=== PATIENT | female | born 1935 | race Caucasian/White ===

== ENCOUNTER → 2017-04-25 | Outpatient (CLI) | payer MEDICARE, BC | LOC: KOH-I 10:23 | DX: M16.12 Unilateral primary osteoarthritis, left hip (principal) | CPT/HCPCS: 73502 ==

== ENCOUNTER → 2021-02-14 | Outpatient (CLI) | payer MEDICARE, BC ==
[~2021-02-14] MED LIST: ALDACTONE50 MG PO; CALCIUM500 MG PO; CARDIZEM CD180 MG PO; CELEBREX 100MG100 MG PO; CYCLOBENZAPRINE5 MG PO; FLEXERIL 10 MG10 MG PO; IPRAT-ALBUT 0.5-3 ML NEB; JANTOVEN6 MG PO; K-DUR TAB 20 M20 MEQ PO; LANOXIN TAB0.125 MG PO; LASIX40 MG PO; MACROBID 100 M100 MG PO; MAGOX 400400 MG PO; MEGACE TAB 20 M20 MG PO; MIRALAX17 GM PO; NEURONTIN 100100 MG PO; NORCO 5-325 TA1 EACH PO; OS-CAL 500+D31 EACH PO; PROLOPRIM 100100 MG PO; REQUIP0.5 MG PO; SENNA-S TABLET1 EACH PO; SINGULAIR10 MG PO; SYMBICORT 16010.2 GM INH; TAMIFLU6 MG/1 ML PO; THERAGRAN M TAB1 EA PO; VENTOLIN HFA 66.7 GM INH; VITAMIN D PO; VITAMIN D31000 UNI1 PO; WARFARIN SODIUM4 MG PO; ZOFRAN4 MG PO
== END ==
LOC: KOH-I 11:42
DX: M47.892 Other spondylosis, cervical region (principal); M50.323 Other cervical disc degeneration at C6-C7 level
CPT/HCPCS: 72040; 93306

== ENCOUNTER 2022-02-03 04:24 | Emergency (ER) | payer MEDICARE, BC ==
[2022-02-03 05:14] LABS: HEMOGLOBIN 10.9 gm/dl (12.3-15.3); RED BLOOD COUNT 3.26 M/UL (4.00-5.10); WHITE BLOOD COUNT 2.9 K/UL (4.5-11.0)
[2022-02-03 05:36] LABS: BUN/CREATININE RATIO 17 (0-10)
== END 2022-02-03 10:45 | disposition other institution (70) ==
LOC: ER1 04:24
PROVIDERS: Emergency Medicine
DX: K62.5 Hemorrhage of anus and rectum (principal); R91.8 Other nonspecific abnormal finding of lung field; Z87.19 Personal history of other diseases of the digestive system; I48.91 Unspecified atrial fibrillation; Z79.01 Long term (current) use of anticoagulants; Z88.0 Allergy status to penicillin; Z51.81 Encounter for therapeutic drug level monitoring
CPT/HCPCS: 80053; 83605; 83690; 85025; 85610; 86850; 86900; 86901; 93005; 99285

== ENCOUNTER 2022-03-02 03:52 | Inpatient (IN) | payer MEDICARE, BC ==
[~2022-03-02] VITALS: Ht 160 cm; Wt 67.3 kg
[~2022-03-02 03:52] MED LIST changes: -CARDIZEM CD180 MG PO; +CARDIZEM CD240 MG PO; -REQUIP0.5 MG PO; +ROPINIROLE HCL1 MG PO; -VITAMIN D PO; +VITAMIN D325 MC6 PO
[2022-03-02 06:51] LABS: HEMOGLOBIN 8.3 gm/dl (12.3-15.3); RED BLOOD COUNT 2.68 M/UL (4.00-5.10); WHITE BLOOD COUNT 3.6 K/UL (4.5-11.0)
[2022-03-02 07:17] LABS: BUN/CREATININE RATIO 14 (0-10)
[2022-03-02] MEDS ORDERED: PROTONIX 40 MG40 M1 PO (10:38)
[2022-03-02] MEDS ORDERED: ELIQUIS2.5 MG PO (10:38)
[2022-03-03 03:44] LABS: BUN/CREATININE RATIO 21 (0-10)
[2022-03-03 04:52] LABS: RED BLOOD COUNT 1.86 M/UL (4.00-5.10); WHITE BLOOD COUNT 5.7 K/UL (4.5-11.0)
[2022-03-03 04:54] LABS: HEMOGLOBIN 5.7 gm/dl (12.3-15.3)
[2022-03-03 17:29] LABS: HEMOGLOBIN 7.7 gm/dl (12.3-15.3)
[2022-03-04 05:29] LABS: RED BLOOD COUNT 2.64 M/UL (4.00-5.10); WHITE BLOOD COUNT 10.6 K/UL (4.5-11.0)
[2022-03-05 06:45] LABS: RED BLOOD COUNT 2.03 M/UL (4.00-5.10); WHITE BLOOD COUNT 13.9 K/UL (4.5-11.0)
[2022-03-05 06:46] LABS: HEMOGLOBIN 6.3 gm/dl (12.3-15.3)
--- NOTE | 2022-03-05 07:01 | NUR ---
reported to dr. velasquez of patient hgb/hct abnormal values- acknowledged and he will discussed with dr. camp of plan what plan to do.
--- NOTE | 2022-03-05 13:49 | NUR ---
dr. brock in the room at this time for central line placement
--- NOTE | 2022-03-05 14:21 | NUR ---
CHEST SENIOR SOFTWARE TESTER WITH DR. RIOJAS IN THE ROOM
--- NOTE | 2022-03-05 14:55 | NUR ---
DR DONG IN PATIENT ROOM NOW
--- NOTE | 2022-03-05 15:15 | NUR ---
AFTER TALKING TO FAMILY DR. DONG ORDERED PATIENT TRANSFER TO ICU
--- NOTE | 2022-03-05 15:25 | NUR ---
Informed dr. dela cruz of [facility] transfer to ICU
[2022-03-06 05:26] LABS: RED BLOOD COUNT 2.73 M/UL (4.00-5.10); WHITE BLOOD COUNT 8.4 K/UL (4.5-11.0)
[2022-03-06 05:27] LABS: HEMOGLOBIN 8.2 gm/dl (12.3-15.3)
[2022-03-06 11:28] LABS: BUN/CREATININE RATIO 33 (0-10)
[2022-03-06 16:47] LABS: HEMOGLOBIN 8.5 gm/dl (12.3-15.3); RED BLOOD COUNT 2.8 M/UL (4.00-5.10); WHITE BLOOD COUNT 8.3 K/UL (4.5-11.0)
[2022-03-06 17:13] LABS: BUN/CREATININE RATIO 34 (0-10)
[2022-03-06 19:42] LABS: BUN/CREATININE RATIO 34 (0-10)
[2022-03-07 04:54] LABS: HEMOGLOBIN 7.5 gm/dl (12.3-15.3); WHITE BLOOD COUNT 7.2 K/UL (4.5-11.0)
[2022-03-07 05:15] LABS: RED BLOOD COUNT 2.48 M/UL (4.00-5.10)
[2022-03-07 05:19] LABS: BUN/CREATININE RATIO 43 (0-10)
[2022-03-07 12:54] LABS: HEMOGLOBIN 7.6 gm/dl (12.3-15.3)
[2022-03-07 13:22] LABS: BUN/CREATININE RATIO 40 (0-10)
[2022-03-07 19:47] LABS: BUN/CREATININE RATIO 46 (0-10)
[2022-03-08 04:16] LABS: RED BLOOD COUNT 2.36 M/UL (4.00-5.10); WHITE BLOOD COUNT 6.2 K/UL (4.5-11.0)
[2022-03-08 04:45] LABS: HEMOGLOBIN 6.7 gm/dl (12.3-15.3)
[2022-03-08 05:30] LABS: BUN/CREATININE RATIO 46 (0-10)
[2022-03-08 16:49] LABS: HEMOGLOBIN 9.2 gm/dl (12.3-15.3)
[2022-03-09 05:38] LABS: HEMOGLOBIN 9.2 gm/dl (12.3-15.3); RED BLOOD COUNT 2.99 M/UL (4.00-5.10); WHITE BLOOD COUNT 8.5 K/UL (4.5-11.0)
[2022-03-09 05:56] LABS: BUN/CREATININE RATIO 45 (0-10)
--- NOTE | 2022-03-09 07:48 | NUR ---
DR. ANNA NOTIFIED OF DISTENDED ABDOMEN, T[place], SHORTNESS OF AIR AND CRACKLES IN THE RIGHT LUNG THAT WAS IDENTIFIED ON MY MORNING ASSESSMENT. STAT CHEST X-RAY AND KUB ORDERED PER DR. ANNA. THE PATIENTS MOST RECENT BOWEL MOVEMENT WAS 03/08/22 ON THE LEATHER TANNER. SHE IS NOT COMPLAINING OF ANY PAIN IN THE ABDOMEN OR NAUSEA/VOMITING.
--- NOTE | 2022-03-09 17:34 | NUR ---
PATIENT HAS REFUSED TURNS THE ENTIRE SHIFT. THE PATIENT HAS BEEN EDUCATED ON HER INCREASED RISK FOR PRESSURE ULCERS AND PNEUMONIA AND THE PATIENT DOES NOT WANT TO TURN.
[2022-03-10 04:18] LABS: HEMOGLOBIN 8.7 gm/dl (12.3-15.3); RED BLOOD COUNT 2.81 M/UL (4.00-5.10); WHITE BLOOD COUNT 5.2 K/UL (4.5-11.0)
[2022-03-10 04:41] LABS: BUN/CREATININE RATIO 46 (0-10)
[2022-03-11 06:09] LABS: HEMOGLOBIN 8.9 gm/dl (12.3-15.3); RED BLOOD COUNT 2.77 M/UL (4.00-5.10); WHITE BLOOD COUNT 4.8 K/UL (4.5-11.0)
[2022-03-11 06:41] LABS: BUN/CREATININE RATIO 37 (0-10)
[2022-03-12 02:05] LABS: HEMOGLOBIN 9.2 gm/dl (12.3-15.3); RED BLOOD COUNT 2.98 M/UL (4.00-5.10)
[2022-03-12 02:26] LABS: BUN/CREATININE RATIO 27 (0-10)
[2022-03-13 01:55] LABS: HEMOGLOBIN 9.7 gm/dl (12.3-15.3); RED BLOOD COUNT 3.14 M/UL (4.00-5.10); WHITE BLOOD COUNT 4.4 K/UL (4.5-11.0)
[2022-03-13 02:14] LABS: BUN/CREATININE RATIO 28 (0-10)
[2022-03-14 02:18] LABS: HEMOGLOBIN 9.4 gm/dl (12.3-15.3); RED BLOOD COUNT 2.93 M/UL (4.00-5.10); WHITE BLOOD COUNT 5.1 K/UL (4.5-11.0)
[2022-03-14 07:51] LABS: BUN/CREATININE RATIO 29 (0-10)
[2022-03-15] MEDS ORDERED: NEURONTIN 100100 MG PO (09:09)
[2022-03-15] MEDS ORDERED: FERROUS SULFAT325 M2 PO (09:09)
[2022-03-15] MEDS ORDERED: PYRIDIUM PO (09:09)
[2022-03-15] MEDS ORDERED: HYDROCODON-ACE1 EAC2 PO (09:09)
[2022-03-15] MEDS ORDERED: MUCOMYST 20% 4 M4 ML NEB (09:09)
[2022-03-15] MEDS ORDERED: DILTIAZEM 24HR180 M1 PO (09:09)
[2022-03-15] MEDS ORDERED: ACETAMINOPHEN325 MG PO (09:09)
[2022-03-15] MEDS ORDERED: IPRAT-ALBUT 0.5-3 ML NEB (09:09)
[2022-03-15] MEDS ORDERED: BISACODYL10 MG PR (09:09)
[2022-03-15] MEDS ORDERED: BUDESONIDE0.5 MG/2 M NEB (09:09)
[2022-03-15] MEDS ORDERED: SENNA-S TABLET1 EACH PO (09:09)
[2022-03-15] MEDS ORDERED: DIFLUCAN100 MG PO (09:17)
[2022-03-15] MEDS ORDERED: LOTRISONE CREAM15 GM TP (09:17)
== END 2022-03-15 16:20 | DRG 474 ==
LOC: ER1 03:52 → PROG CARE 08:50 → M/S 08:50 → CCU 08:50 → CDU 08:50 → M/S 10:23 → CCU 03-05 19:00 → PROG CARE 03-10 13:49
PROVIDERS: Internal Medicine; Internal Medicine Critical Care Medicine; Internal Medicine Infectious Disease; Internal Medicine Nephrology; Internal Medicine Pulmonary Disease; Orthopaedic Surgery; Physician Assistant Medical; Student in an Organized Health Care Education/Training Program; ADMIT Internal Medicine
PROC: B24BZZZ Ultrasonography of Heart with Aorta (ICD-10-PCS; 2022-03-02)
PROC: 30233N1 Transfusion of Nonautologous Red Blood Cells into Peripheral Vein, Percutaneous Approach (ICD-10-PCS; principal; 2022-03-03)
PROC: 02HV33Z Insertion of Infusion Device into Superior Vena Cava, Percutaneous Approach (ICD-10-PCS; 2022-03-05)
PROC: 0Y6J0Z3 Detachment at Left Lower Leg, Low, Open Approach (ICD-10-PCS; 2022-03-06)
PROC: 5A09357 Assistance with Respiratory Ventilation, Less than 24 Consecutive Hours, Continuous Positive Airway Pressure (ICD-10-PCS; 2022-03-06)
PROC: 5A09357 Assistance with Respiratory Ventilation, Less than 24 Consecutive Hours, Continuous Positive Airway Pressure (ICD-10-PCS; 2022-03-09)
PROC: 5A0935A Assistance with Respiratory Ventilation, Less than 24 Consecutive Hours, High Flow/Velocity Cannula (ICD-10-PCS; 2022-03-09)
PROC: 5A09357 Assistance with Respiratory Ventilation, Less than 24 Consecutive Hours, Continuous Positive Airway Pressure (ICD-10-PCS; 2022-03-10)
PROC: 5A0935A Assistance with Respiratory Ventilation, Less than 24 Consecutive Hours, High Flow/Velocity Cannula (ICD-10-PCS; 2022-03-10)
PROC: 5A09357 Assistance with Respiratory Ventilation, Less than 24 Consecutive Hours, Continuous Positive Airway Pressure (ICD-10-PCS; 2022-03-11)
PROC: 5A0935A Assistance with Respiratory Ventilation, Less than 24 Consecutive Hours, High Flow/Velocity Cannula (ICD-10-PCS; 2022-03-11)
PROC: 5A09357 Assistance with Respiratory Ventilation, Less than 24 Consecutive Hours, Continuous Positive Airway Pressure (ICD-10-PCS; 2022-03-12)
PROC: 5A0935A Assistance with Respiratory Ventilation, Less than 24 Consecutive Hours, High Flow/Velocity Cannula (ICD-10-PCS; 2022-03-12)
PROC: 5A09357 Assistance with Respiratory Ventilation, Less than 24 Consecutive Hours, Continuous Positive Airway Pressure (ICD-10-PCS; 2022-03-13)
PROC: 5A0935A Assistance with Respiratory Ventilation, Less than 24 Consecutive Hours, High Flow/Velocity Cannula (ICD-10-PCS; 2022-03-13)
PROC: 5A0935A Assistance with Respiratory Ventilation, Less than 24 Consecutive Hours, High Flow/Velocity Cannula (ICD-10-PCS; 2022-03-14)
PROC: 5A09357 Assistance with Respiratory Ventilation, Less than 24 Consecutive Hours, Continuous Positive Airway Pressure (ICD-10-PCS; 2022-03-15)
PROC: 5A0935A Assistance with Respiratory Ventilation, Less than 24 Consecutive Hours, High Flow/Velocity Cannula (ICD-10-PCS; 2022-03-15)
DX: S72.402A Unspecified fracture of lower end of left femur, initial encounter for closed fracture (principal); I50.33 Acute on chronic diastolic (congestive) heart failure; J96.21 Acute and chronic respiratory failure with hypoxia; J96.22 Acute and chronic respiratory failure with hypercapnia; M97.02XA Periprosthetic fracture around internal prosthetic left hip joint, initial encounter; E87.1 Hypo-osmolality and hyponatremia; N17.9 Acute kidney failure, unspecified; N30.00 Acute cystitis without hematuria; I11.0 Hypertensive heart disease with heart failure; I48.0 Paroxysmal atrial fibrillation; K64.8 Other hemorrhoids; K57.90 Diverticulosis of intestine, part unspecified, without perforation or abscess without bleeding; M40.209 Unspecified kyphosis, site unspecified; W01.0XXA Fall on same level from slipping, tripping and stumbling without subsequent striking against object, initial encounter; D69.6 Thrombocytopenia, unspecified; Z96.653 Presence of artificial knee joint, bilateral; Z96.642 Presence of left artificial hip joint; K21.9 Gastro-esophageal reflux disease without esophagitis; I27.20 Pulmonary hypertension, unspecified; K59.00 Constipation, unspecified; I25.10 Atherosclerotic heart disease of native coronary artery without angina pectoris; E87.6 Hypokalemia; B96.5 Pseudomonas (aeruginosa) (mallei) (pseudomallei) as the cause of diseases classified elsewhere; Z83.3 Family history of diabetes mellitus; Z79.899 Other long term (current) drug therapy; Y92.009 Unspecified place in unspecified non-institutional (private) residence as the place of occurrence of the external cause; Z79.01 Long term (current) use of anticoagulants; Z91.041 Radiographic dye allergy status; Z95.818 Presence of other cardiac implants and grafts; Z95.810 Presence of automatic (implantable) cardiac defibrillator; I36.1 Nonrheumatic tricuspid (valve) insufficiency; B37.3 Candidiasis of vulva and vagina
CPT/HCPCS: ECHO; 0240U; 36415; 36430; 36600; 70450; 71045; 72125; 73502; 73564; 73700; 74018; 80048; 80053; 80162; 81001; 82436; 82533; 82803; 83540; 83550; 83605; 83735; 83880; 84100; 84133; 84300; 84439; 84443; 84550; 85014; 85018; 85025; 85027; 85610; 85730; 86850; 86900; 86901; 86920; 87077; 87086; 87186; 92526; 92610; 93005; 93306; 94640; 94660; 94664; 94668; 94760; 96372; 96374; 96375; 97110; 97110-GP-CQ; 97162; 97166; 97530; 97530-GP-CQ; 99285; J0690; J1100; J1120; J1170; J1644; J1650; J1756; J1940; J2001; J2270; J2405; J2550; J2704; J2795; J3010; J7040; J7050; P9016; P9047; U0002